=== PATIENT | female | born 1985 | race African-American/Black ===

== ENCOUNTER 2016-07-31 17:09 | Emergency (ER) | payer OTHER ==
[~2016-07-31 17:09] MED LIST: OXYC1TAB63 PO
[2016-07-31 17:12] VITALS: BP 120/77; PULSE 89; RESP 16; TEMP 98; O2SAT 100
--- NOTE | 2016-07-31 17:38 | PD ---
HPI Chief Complaint: [employer] Problem/Complaint Time Seen by Provider: 17:21 Travel History International Travel<30 days: No Contact w/Intl Traveler<30days: No Traveled to known affect area: No History of Present Illness HPI This 30-year-old female says she noted a lump in the vaginal area. She says she 's noticed it for about a week. She said actually seems to be but similar today and was before. She has not had fever or chills. She has had a tubal ligation. She has given and required episiotomy. She is also noted a small lump in the right groin. PFSH Past Medical History ?: Not LMP: 07/19/16 : 5 Para: 3 : 1 Tubal Ligation: Yes Social History Alcohol Use: Yes (occ) Tobacco Use: No Substance Use: No Allergies-Medications (Allergen,Severity, Reaction): Coded Allergies: No Known Allergies (Verified , 07/31/16) Reported Meds & Prescriptions Reported Meds & Active Scripts Active No Active Prescriptions or Reported Medications Review of Systems General / Constitutional: No: Fever, Chills Eyes: No: Diploplia Cardiovascular: No: Chest Pain or Discomfort Respiratory: No: Cough, Shortness of Breath Gastrointestinal: No: Vomiting Genitourinary: No: Urgency, Frequency Musculoskeletal: No: Myalgias Skin: No Rash Neurologic: No: Weakness Endocrine: No: Heat Intolerance Hematologic/Lymphatic: No: Easy Bruising Physical Exam Narrative GENERAL: Well-developed female SKIN: Focused skin assessment warm/dry. HEAD: Atraumatic. Normocephalic. EYES: Pupils equal and round. No scleral icterus. No injection or drainage. ENT: No nasal bleeding or discharge. Mucous membranes pink and moist. NECK: Trachea midline. No JVD. GASTROINTESTINAL: Abdomen soft, non-tender, nondistended. Hepatic and splenic margins not palpable. Pelvic: There is a frothy white discharge in the vagina. The area of concern is an area of induration of the posterior vaginal wall. It does not appear fluctuant. Rectal exam is negative. There is a 1 cm lymph node in the right inguinal area which is nontender MUSCULOSKELETAL: No obvious deformities. No clubbing. No cyanosis. No edema. NEUROLOGICAL: Awake and alert. No obvious cranial nerve deficits. Motor grossly within normal limits. Normal speech. PSYCHIATRIC: Appropriate mood and affect; insight and judgment normal. Data Data Last Documented VS Vital Signs Date Time Temp Pulse Resp B/P Pulse Ox O2 Delivery O2 Flow Rate FiO2 07/31/16 17:12 98.0 89 16 120/77 100 Orders Gc And Chlamydia Pcr (07/31/16 17:33) Wet Prep Profile (07/31/16 17:33) Labs Laboratory Tests Test 07/31/16 17:35 Clue Cells (Wet Prep) NONE SEEN Vaginal Trichomonas (Wet Prep) PRESENT Vaginal Yeast (Wet Prep) NONE SEEN MDM Medical Decision Making Medical Screen Exam Complete: Yes Emergency Medical Condition: Yes Medical Record Reviewed: Yes Differential Diagnosis Patient states this area of swelling appears small amount of head vigorously. Does not appear fluctuant and I'm reluctant to do an I&D in this area. It is getting smaller and may be draining though I do not see that happening. She does have a small inguinal nodes suggestive that this may be an infectious process. She does have vaginal discharge suggestive of vaginitis Narrative Course Wet prep is positive for Trichomonas. She'll be treated with Flagyl. 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
[2016-07-31] MEDS ORDERED: METR-1 PO (18:10)
[2016-07-31 21:20] LABS: CHLAMYDIA PCR DETECTED (NOT DETECT); NEISSERIA PCR NOT DETECTED (NOT DETECT)
[2016-08-17] MEDS ORDERED: METR500T10 PO (08:53)
[2016-08-17] MEDS ORDERED: ERGO1CAP10 PO (09:31)
== END 2016-07-31 18:29 | disposition home or self-care (01) ==
LOC: PHED 17:09
DX: A59.01 Trichomonal vulvovaginitis (principal)
CPT/HCPCS: 87210; 87491; 87591; 99283

== ENCOUNTER 2017-04-19 12:20 | Emergency (ER) | payer OTHER ==
[~2017-04-19] VITALS: Ht 172.7 cm; Wt 100.4 kg
[~2017-04-19 12:20] MED LIST changes: +ERGO1CAP10 PO; -OXYC1TAB63 PO
[2017-04-19 12:40] VITALS: BP 140/62; PULSE 110; RESP 16; TEMP 99.9; O2SAT 98
--- NOTE | 2017-04-19 15:08 | PD ---
HPI Chief Complaint: Musculoskeletal Complaint Time Seen by Provider: 15:01 Travel History International Travel<30 days: No Contact w/Intl Traveler<30days: No Traveled to known affect area: No History of Present Illness HPI 31-year-old female presents to ED for evaluation of nighttime muscle spasming in the bilateral calves and the right thigh. Onset last night. No alleviating or exacerbating factors reported. Patient states that she's been coughing overnight but she denies fever, chills, nausea, vomiting, diarrhea. She endorses urinary urgency but denies dysuria or hematuria. She denies numbness, tingling, weakness, limitations to range of motion of extremities. She states that she eats a well-balanced diet and drinks plenty of water. Currently menstruating. [facility] Past Medical History Medical History: Denies Significant Hx ?: Not LMP: 04/19/17 : 5 Para: 3 : 1 Tubal Ligation: Yes Social History Alcohol Use: Yes (occ) Tobacco Use: No (FORMER) Substance Use: No Allergies-Medications (Allergen,Severity, Reaction): Coded Allergies: No Known Allergies (Verified Adverse Reaction, Unknown, 04/19/17) Reported Meds & Prescriptions Reported Meds & Active Scripts Active Review of Systems Except as stated in HPI: all other systems reviewed are Neg Physical Exam Narrative GENERAL: Well-nourished, well-developed female in no acute distress. SKIN: Focused skin assessment warm/dry. HEAD: Normocephalic. EYES: No scleral icterus. No injection or drainage. ENT: Pearly bertrand tympanic limits bilaterally. Oropharynx without erythema, edema, exudate. NECK: Supple, trachea midline. No JVD or lymphadenopathy. CARDIOVASCULAR: Regular rate and rhythm without murmurs, gallops, or rubs. RESPIRATORY: Breath sounds clear and equal bilaterally. No accessory muscle use. GASTROINTESTINAL: Abdomen soft nondistended, no hepatosplenomegaly. mild tenderness palpation in the suprapubic region. Active bowel sounds. MUSCULOSKELETAL: No cyanosis, or edema. The muscles of the bilateral lower extremities are soft. Patient retains full, active, painless R OM of the lower extremities. Neurovascularly intact. BACK: Nontender without obvious deformity. No CVA tenderness. Data Data Last Documented VS Vital Signs Date Time Temp Pulse Resp B/P (MAP) Pulse Ox O2 Delivery O2 Flow Rate FiO2 12/18/17 12:40 99.9 110 16 140/62 (88) 98 Orders Orders Iv Access Insert/Monitor (04/19/17 15:08) Comprehensive Metabolic Panel (04/19/17 15:08) Urinalysis - C+S If Indicated (04/19/17 15:08) Sodium Chlor 0.9% 1000 Ml Inj (Ns 1000 M (04/19/17 15:15) Ketorolac Inj (Toradol Inj) (04/19/17 15:15) Potassium Chloride (Kcl) (04/19/17 16:15) Ed Discharge Order (04/19/17 16:21) Labs Laboratory Tests Test 04/19/17 15:38 04/19/17 15:40 Blood Urea Nitrogen 8 MG/DL Creatinine 0.75 MG/DL Random Glucose 91 MG/DL Total Protein 7.4 GM/DL Albumin 3.7 GM/DL Calcium Level 8.5 MG/DL Alkaline Phosphatase 57 U/L Aspartate Amino Transf (AST/SGOT) 20 U/L Alanine Aminotransferase (ALT/SGPT) 28 U/L Total Bilirubin 0.5 MG/DL Sodium Level 137 MEQ/L Potassium Level 3.4 MEQ/L Chloride Level 105 MEQ/L Carbon Dioxide Level 23.8 MEQ/L Anion Gap 8 MEQ/L Estimat Glomerular Filtration Rate 108 ML/MIN Urine Collection Type CLEAN CATCH Urine Color YELLOW Urine Turbidity CLEAR Urine pH 6.0 Urine Specific [place] 1.025 Urine Protein NEG mg/dL Urine Glucose (UA) NEG mg/dL Urine Ketones NEG mg/dL Urine Occult Blood LARGE Urine Nitrite NEG Urine Bilirubin NEG Urine Leukocyte Esterase NEG Urine WBC 0-2 /hpf Urine Squamous Epithelial Cells 0-2 /hpf Urine Mucus MOD /lpf Microscopic Urinalysis Comment CULT NOT INDICATED MDM Medical Decision Making Medical Screen Exam Complete: Yes Emergency Medical Condition: Yes Differential Diagnosis Dehydration versus UTI versus electrolyte abnormality versus restless leg syndrome versus other Narrative Course 31-year-old female presents to ED for evaluation of nighttime muscle spasming in the bilateral calves and the right thigh. Onset last night. Denies fever, chills, nausea, vomiting, diarrhea. She endorses urinary urgency but denies dysuria or hematuria. She denies numbness, tingling, weakness, limitations to range of motion of extremities. Vitals reviewed. Physical exam is unremarkable. Muscles of the lower extremities are soft and flaccid bilaterally. IV was established. Patient was administered 30 mg Toradol and 1 L normal saline. Mild deficit of potassium CMP, otherwise unremarkable. Unsure of the source of her leg cramps. We discussed several symptomatic strategies including supportive shoes, stretching, light massage. The patient instructed to follow up with her primary care provider. She indicated understanding of these instructions and is agreeable care plan. The patient stable and discharged home. Diagnosis Primary Impression: Nocturnal leg cramps Referrals: Primary Care Physician Patient Instructions: General Instructions, Leg Cramps (ED) Additional Instructions: Return normal, gentle activity as tolerated. Wear supportive shoes during the day. Stay hydrated and eat a healthy diet. Stretch before and after exercising. Warm or cold compresses applied to the area for 10-15 minutes at a time may help to reduce your symptoms. Follow-up with primary care provider should symptoms continue. Return to the ED for any urgent or emergent medical condition. Scripts No Active Prescriptions or Reported Meds Disposition: 01 DISCHARGE HOME Condition: Stable Daphne Buitrago Apr 19, 2017 15:08
[2017-04-19] MEDS ORDERED: SODIUM CHLOR 0.9% 1000 ML INJ 1,000 ML IV ONE (15:15)
[2017-04-19] MEDS ORDERED: KETOROLAC TROMETHAMINE 30 MG/ML (IVP) VIAL IV PUSH ONE (15:15)
[2017-04-19 15:51] LABS: BILIRUBIN, URINE NEG (NEG); BLOOD, URINE LARGE (NEG); GLUCOSE,URINE NEG (NEG); KETONE, URINE NEG (NEG); NITRITE,URINE NEG (NEG); URINE LEUKOCYTE ESTERASE NEG (NEG)
[2017-04-19 15:58] LABS: CHLORIDE 105 MEQ/L (98-107); SODIUM (NA) 137 MEQ/L (136-145)
[2017-04-19 16:00] LABS: CALCIUM 8.5 MG/DL (8.5-10.1)
[2017-04-19 16:01] LABS: ALBUMIN 3.7 GM/DL (3.4-5.0); BICARBONATE 23.8 MEQ/L (21.0-32.0); BLOOD UREA NITROGEN 8 MG/DL (7-18); GLUCOSE,RANDOM 91 MG/DL (74-106)
[2017-04-19 16:04] LABS: ALT (GPT) 28 U/L (10-53); AST (GOT) 20 U/L (15-37); CREATININE 0.75 MG/DL (0.50-1.00); GLOMERULAR FILTRATION RATE 108 ML/MIN (>89)
[2017-04-19 16:06] LABS: TOTAL BILIRUBIN ADULT 0.5 MG/DL (0.2-1.0); TOTAL PROTEIN 7.4 GM/DL (6.4-8.2)
[2017-04-19 16:07] LABS: ALKALINE PHOSPHATASE 57 U/L (45-117)
[2017-04-19 16:13] LABS: URINE COLOR YELLOW (YELLW/STRAW)
[2017-04-19 16:15] LABS: SQUAMOUS EPITHELIAL CELL URINE 0-2 /hpf (0-5); WBC, URINE 0-2 /hpf (0-5)
[2017-04-19] MEDS ORDERED: POTASSIUM CHLORIDE 20 MEQ CONTROLLED RELEASE TAB PO ONE (16:15)
[2017-04-19 16:16] LABS: MUCUS URINE MOD /lpf (OCC)
== END 2017-04-19 16:57 | disposition home or self-care (01) ==
LOC: PHED 12:20 → PHEFT 16:57
DX: R25.2 Cramp and spasm (principal); R39.15 Urgency of urination
CPT/HCPCS: 80053; 81001; 96361; 96374; 99284; J1885; J7030